=== PATIENT | female | born 1990 | race Two or more races ===

== ENCOUNTER 2020-08-31 09:37 | Day surgery (SDC) | payer OTHER ==
[~2020-08-31 09:37] MED LIST: JUNEL FE 24 TA1 EACH PO
== END 2020-08-31 22:50 | disposition home or self-care (01) ==
LOC: CIR.AMB 09:37
PROVIDERS: ATTEND Obstetrics & Gynecology
DX: N84.0 Polyp of corpus uteri (principal); N72 Inflammatory disease of cervix uteri; Z20.822 Contact with and (suspected) exposure to COVID-19

== ENCOUNTER 2024-08-15 17:23 | Emergency (ER) | payer OTHER ==
[~2024-08-15] VITALS: Ht 167.6 cm; Wt 103.0 kg
[2024-08-15 18:48] LABS: HEMATOCRIT 38.1 % (36.0-45.00); HEMOGLOBIN 13.1 g/dL (12.0-15.00); MEAN CELL VOLUME 84.9 fL (80.00-100.00); MEAN CORPUSCULAR HEMOGLOBIN 29.2 pg (27.00-32.0); MEAN CORPUSCULAR HGB CONC 34.4 g/dl (32.0-36.0); PLATELET COUNT 257 K/uL (150-450); RED BLOOD COUNT 4.49 M/uL (4.00-6.00); RED CELL DISTRIBUTION WIDTH 14.9 % (11.5-14.5)
[2024-08-15 19:37] LABS: INR 0.99; PROTHROMBIN TIME 10.8 SECONDS (9.0-11.5)
[2024-08-15 19:55] LABS: URINE APPEARANCE Clear; URINE BILIRRUBIN Negative (NEGATIVE); URINE BLOOD Negative; URINE COLOR Yellow; URINE GLUCOSE Negative (NEGATIVE); URINE KETONE Negative (NEGATIVE); URINE LEUKOCYTE Negative; URINE NITRATE Negative; URINE PROTEIN Negative (NEGATIVE); URINE UROBILINOGEN 0.2 E.U./dl
[2024-08-15 19:59] LABS: URINE BACTERIA 59.8 uL (0.0-1933); URINE EPITHELIAL CELLS 1.4 uL (0.0-38.8); URINE RBC 7.9 uL (0.0-20.8); URINE WBC 2.6 uL (0.0-23.2)
== END 2024-08-15 21:49 ==
LOC: ER 17:25
PROVIDERS: Emergency Medicine
DX: O20.8 Other hemorrhage in early pregnancy (principal); Z3A.01 Less than 8 weeks gestation of pregnancy; N93.9 Abnormal uterine and vaginal bleeding, unspecified; Z88.0 Allergy status to penicillin

== ENCOUNTER 2024-08-26 02:45 | Emergency (ER) | payer OTHER ==
[~2024-08-26] VITALS: Ht 167.6 cm; Wt 106.1 kg
[2024-08-26] MEDS ORDERED: PROGESTERONE200 MG PO (02:56)
[2024-08-26] MEDS ORDERED: RINGERS SOLUTION,LACTATED 1,000 ML IV ONE (03:45)
[2024-08-26 04:42] LABS: HEMATOCRIT 37.2 % (36.0-45.00); HEMOGLOBIN 12.7 g/dL (12.0-15.00); MEAN CORPUSCULAR HGB CONC 34.2 g/dl (32.0-36.0); PLATELET COUNT 262 K/uL (150-450); RED BLOOD COUNT 4.38 M/uL (4.00-6.00); RED CELL DISTRIBUTION WIDTH 15.2 % (11.5-14.5)
[2024-08-26 04:56] LABS: INR 1.03; PARTIAL THROMBOPLASTIN TIME 30.2 SECONDS (22.0-34.0); PROTHROMBIN TIME 11.2 SECONDS (9.0-11.5)
[2024-08-26 05:22] LABS: PH,URINE 5.5 (5.0-8.0); URINE APPEARANCE Clear; URINE BILIRRUBIN Negative (NEGATIVE); URINE BLOOD Moderate; URINE COLOR Yellow; URINE GLUCOSE Negative (NEGATIVE); URINE KETONE Negative (NEGATIVE); URINE LEUKOCYTE Negative; URINE NITRATE Negative; URINE PROTEIN Negative (NEGATIVE); URINE UROBILINOGEN 0.2 E.U./dl
[2024-08-26 05:31] LABS: URINE EPITHELIAL CELLS 1.7 uL (0.0-38.8); URINE RBC 5.1 uL (0.0-20.8)
[2024-08-26 05:32] LABS: URINE WBC 0.7 uL (0.0-23.2)
[2024-08-26 05:33] LABS: URINE BACTERIA 3.6 uL (0.0-1933)
[2024-08-26 05:43] LABS: CALCIUM 9.5 mg/dL (8.5-10.1); CREATININE SERUM 0.73 mg/dL (0.55-1.02); GFR 92.99; POTASSIUM 3.97 mEq/L (3.5-5.1)
== END 2024-08-26 07:35 ==
LOC: ER 02:47
PROVIDERS: General Practice
DX: O20.8 Other hemorrhage in early pregnancy (principal); Z3A.09 9 weeks gestation of pregnancy; Z88.0 Allergy status to penicillin

== ENCOUNTER 2024-08-26 14:31 | Day surgery (SDC) | payer OTHER ==
[~2024-08-26] VITALS: Ht 167.6 cm; Wt 106.1 kg
--- NOTE | 2024-08-26 12:35 | NUR ---
PTE ALERTA Y ORIENTADA X3 REFIERE VENIR A YOBANY DEBIOD A QUE LA MISMA ESTA TENIENDO SANGRADO VAGINAL ACOMPAANDO POR DOLOR PELVICO INTERMITENTE. SE MIDEN S/V Y SE UBICA.
--- NOTE | 2024-08-26 13:41 | NUR ---
SE EDUCA PACIENTE SOBRE EL TX MEDICO Y ESTA REFIERE ENTENDER. SE CANALIZA Y SE MADELYN EN S/L. SE ANTONIO MUESTRAS DE LABORATORIOS Y SE ENVIAN
[2024-08-26 13:43] LABS: HEMATOCRIT 37.7 % (36.0-45.00); HEMOGLOBIN 12.7 g/dL (12.0-15.00); MEAN CELL VOLUME 85.9 fL (80.00-100.00); MEAN CORPUSCULAR HEMOGLOBIN 28.9 pg (27.00-32.0); MEAN CORPUSCULAR HGB CONC 33.6 g/dl (32.0-36.0); PLATELET COUNT 265 K/uL (150-450); RED BLOOD COUNT 4.39 M/uL (4.00-6.00); RED CELL DISTRIBUTION WIDTH 14.6 % (11.5-14.5)
[2024-08-26 13:49] LABS: URINE APPEARANCE Clear; URINE BILIRRUBIN Negative (NEGATIVE); URINE BLOOD Large; URINE COLOR Dark Yellow; URINE GLUCOSE Negative (NEGATIVE); URINE KETONE Negative (NEGATIVE); URINE LEUKOCYTE Trace; URINE NITRATE Negative; URINE PROTEIN Negative (NEGATIVE); URINE UROBILINOGEN 0.2 E.U./dl
[2024-08-26 13:52] LABS: URINE BACTERIA 171.3 uL (0.0-1933); URINE EPITHELIAL CELLS 5.6 uL (0.0-38.8); URINE WBC 11.5 uL (0.0-23.2)
[2024-08-26 14:05] LABS: INR 1.03; PARTIAL THROMBOPLASTIN TIME 31.5 SECONDS (22.0-34.0); PROTHROMBIN TIME 11.2 SECONDS (9.0-11.5)
[~2024-08-26 14:31] MED LIST changes: +PROGESTERONE200 MG PO
[2024-08-26] MEDS ORDERED: DESMOPRESSIN ACETATE 4 MCG/ML AMPUL IV SCH (16:30)
[2024-08-26] MEDS ORDERED: POVIDONE-IODINE 118 ML BOTT TOP ONE (21:30)
[2024-08-26] MEDS ORDERED: RINGERS SOLUTION,LACTATED 1,000 ML IV SCH (22:15)
[2024-08-26] MEDS ORDERED: MORPHINE SULFATE 4 MG/ML VIAL IV ONE (23:30)
[2024-08-27 00:10] LABS: HEMATOCRIT 35.5 % (36.0-45.00); MEAN CELL VOLUME 86.4 fL (80.00-100.00); MEAN CORPUSCULAR HEMOGLOBIN 29.2 pg (27.00-32.0); MEAN CORPUSCULAR HGB CONC 33.7 g/dl (32.0-36.0); PLATELET COUNT 248 K/uL (150-450); RED CELL DISTRIBUTION WIDTH 15.1 % (11.5-14.5)
[2024-08-27 03:39] VITALS: BP 109/56; O2SAT 100
== END 2024-08-26 22:07 | disposition home or self-care (01) ==
LOC: ER 14:31 → CIR.AMB 14:31 → SEC-K 18:44 → ER 18:44 → O/R 18:44 → CIR.AMB 22:07 → SEC-K 08-27 06:37 → O/R 08-27 06:37
PROVIDERS: Obstetrics & Gynecology; ATTEND General Practice
DX: O02.1 Missed abortion (principal)